=== PATIENT | male | born 1955 | race Caucasian/White ===

== ENCOUNTER 2024-02-29 02:41 | Emergency (ER) | payer MEDICARE, SELFPAY ==
[2024-02-29 02:48] VITALS: PULSE 54; O2SAT 96
[2024-02-29 02:51] VITALS: BP 190/93; PULSE 61; RESP 18; TEMP 36.5; O2SAT 97; BMI 29.6
--- NOTE | 2024-02-29 03:03 | ED_ITS ---
HPI - Back Pain/Injury General Chief Complaint: Back Pain/Injury Stated Complaint: lower back pain rt side Time Seen by Provider: 02/29/24 02:43 Source: patient Mode of arrival: Ambulatory Limitations: no limitations History of Present Illness HPI Narrative: Patient is a 61-year-old. States he was a history kidney stones. His last kidney stone was greater than 10 years ago. Is here for evaluation a couple days of right-sided flank pain. He states that the symptoms occur after he urinates. No fevers. No vomiting. He states it feels like prior stone. He went to the walk-in clinic yesterday. He was told that and potentially is muscular in origin. Has been taking anti-inflammatories without improvement. No skin changes. Related Data Previous Rx's Medication Instructions Recorded omeprazole 20 mg capsule,delayed 20 mg PO QDAY ##30 02/16/12 release hydrocodone 5 mg-acetaminophen 325 1 tab PO Q8H PRN pain #7 tabs 02/29/24 mg tablet Allergies Allergy/AdvReac Type Severity Reaction Status Date / Time lisinopril [LISINOPRIL] Allergy Unknown COUGH Verified 02/29/24 03:57 nabumetone [NABUMETONE] Allergy Unknown RASH Verified 02/29/24 03:57 Review of Systems Review of Systems ROS Unobtainable: All systems reviewed & are unremarkable except as noted in HPI and below Exam Initial Vital Signs Initial Vital Signs: Vital Signs Pulse Rate 54 L 02/29/24 02:48 Pulse Oximetry 96 02/29/24 02:48 Oxygen Delivery Method Room Air 02/29/24 02:48 Const General: cooperative, comfortable and No ill appearing [facility] Head: normal to inspection and normocephalic Resp Effort & Inspection: normal respiratory effort Cardio Rate: regular rate Back/Spine/Pelvis Back: CVA tenderness right Skin General: no rashes or lesions noted Neuro General: patient alert, patient awake and moves all extremities Course Orders Ordered: ED Orders 02/29/24 03:10 Basic Metabolic Panel Stat Complete Blood Count AUTO DIFF Stat 02/29/24 03:52 CT kidney ureter bladder (KUB) Stat Discontinued Medications Hydrocodone Bitart/Acetaminophen (Hydrocodone/Acet 5/325 Tablet) 1 tab PO NOW ONE Stop: 02/29/24 03:04 Last Admin: 02/29/24 03:14 Dose: 1 tab Documented By: Hydrocodone Bitart/Acetaminophen (Hydrocodone/Acet 5/325 Prepack) 1 bottle MISC DIRECTED ONE Stop: 02/29/24 04:47 Last Admin: 02/29/24 04:51 Dose: 1 bottle Documented By: NORY Vital Signs Vital signs: Vital Signs - 8 hr 02/29/24 02:48 02/29/24 02:51 Temperature 97.7 F Pulse Rate 54 L 61 Respiratory Rate 18 Blood Pressure 190/93 H Pulse Oximetry 96 97 Oxygen Delivery Method Room Air Room Air MDM - Back Pain/Injury Lab Data Attestation: I reviewed the patient's lab results. 02/29/24 03:10 02/29/24 03:10 Labs: Lab Results 02/29/24 Range/Units 03:10 WBC 7.3 (4.5-11.0) X10^3/uL RBC 4.77 (4.5-5.9) X10^6/uL Hgb 15.1 (13.5-17.5) g/dL Hct 42.7 (41-53) % MCV 89.4 (80-100) fL MCH 31.6 (26-34) PG MCHC 35.3 (30-36) % RDW 13.6 (11.6-14.8) % Plt Count 208 (150-400) X10^3/uL Neut % (Auto) 56.4 (50-75) % Lymph % (Auto) 30.0 (25-40) % [place] % (Auto) 8.1 (3-14) % Eos % (Auto) 4.5 H (2-4) % Baso % (Auto) 1.0 (0-2) % Neut # (Auto) 4100 (1659-1472) /uL Lymph # (Auto) 2200 (1149-0460) /uL [place] # (Auto) 600 (0-900) /uL Eos # (Auto) 300 (0-450) /uL Baso # (Auto) 100 (0-100) /uL Sodium 135 L (137-145) mmol/L Potassium 3.3 L (3.4-5.1) mmol/L Chloride 99 (98-107) mmol/L Carbon Dioxide 28 (22-32) mmol/L BUN 18 (9-20) mg/dL Creatinine 0.81 (0.66-1.25) mg/dL Estimated GFR > 60 (>60) mL/min BUN/Creatinine Ratio 22.2 H (6-22) Glucose 113 H (80-110) mg/dL Calcium 10.0 (8.4-10.2) mg/dL Urine Dip Bedside Urine Glucose Negative Bedside Urine Bilirubin - Negative Bedside Urine Ketone - Negative Urine Specific Dawson 1.005 Bedside Urine Occult Blood - Negative Bedside Urine pH 7.0 Bedside Urine Protein - Negative Bedside Urine Urobilinogen - Negative Bedside Urine Nitrite - Negative Bedside Urine Leukocytes - Negative Esterase MDM Narrative Medical decision making narrative: His labs are unremarkable. Urinalysis does not show any signs of blood. No signs of infection. Low suspicion for pyelo. We discussed obtaining a CT scan for further evaluation 1st his treating conservatively with medications. After the discussion the patient opted to have the CT scan performed. The CT scan did not show any right-sided nephro or ureteral stones. He was a punctate stone in the left. Does have a gallstone but does not have any right upper quadrant tenderness. I discussed this with the patient. No indication for antibiotics or surgical consultation. Will treat conservatively for now. He was given return precautions. He expressed understanding and agreement. Discharge Plan Departure Patient Disposition: Home Clinical Impression: Acute right flank pain Instructions: DI for Flank Pain Activity Restrictions/Additional Instructions: Recommend that you contact your primary care doctor for a follow-up. He was the pain medication as needed. Return to the emergency department for new or worsening symptoms. Prescriptions: New hydrocodone-acetaminophen 5-325 mg tablet 1 tab PO Q8H PRN (Reason: pain) Qty: 7 0RF No Action omeprazole 20 MG capsule,delayed release(DR/EC) 20 mg PO QDAY Qty: 30 5RF Referrals: Ravi Juarez MD [Primary Care Provider] - Stand Alone Forms: Patient Portal/API
[2024-02-29] MEDS: HYDROCODONE/ACET 5/325 TABLET 1 TAB PO (03:14)
[2024-02-29 03:22] LABS: Add Manual Diff / Slide Review NO; Basophils Absolute Auto 100 /uL (0-100); Eosinophils Absolute Auto 300 /uL (0-450); Eosinophils Percent Auto 4.5 % (2-4); Hematocrit 42.7 % (41-53); Hemoglobin 15.1 g/dL (13.5-17.5); Lymphocytes Absolute Auto 2200 /uL (1100-4500); Mean Corpuscular HGB Conc 35.3 % (30-36); Mean Corpuscular Hemoglobin 31.6 PG (26-34); Mean Corpuscular Volume 89.4 fL (80-100); Monocytes Absolute Auto 600 /uL (0-900); Monocytes Percent Auto 8.1 % (3-14); Neutrophils Absolute Auto 4100 /uL (1500-7000); Neutrophils Percent Auto 56.4 % (50-75); Platelet Count 208 X10^3/uL (150-400); Red Blood Cell Count 4.77 X10^6/uL (4.5-5.9); Red Cell Distribution Width 13.6 % (11.6-14.8); White Blood Cell Count 7.3 X10^3/uL (4.5-11.0)
[2024-02-29 03:36] LABS: BUN Creatinine Ratio 22.2 (6-22); Blood Urea Nitrogen 18 mg/dL (9-20); Carbon Dioxide 28 mmol/L (22-32); Chloride 99 mmol/L (98-107); Estimated Glomerular Filt Rate > 60 mL/min (>60); Glucose 113 mg/dL (80-110); HEMOLYSIS < 15 (0-50); Potassium 3.3 mmol/L (3.4-5.1); Sodium 135 mmol/L (137-145)
--- NOTE | 2024-02-29 03:52 | DI.CT.S_ITS ---
PROCEDURE: CT KIDNEY URETER BLADDER (KUB) INDICATIONS: R flank pain eval for stone TECHNIQUE: Axial sections were acquired from the lung bases to the pubic symphysis. Coronal and sagittal reformats were performed. For radiation dose reduction, the following was used: automated exposure control, adjustment of mA and/or kV according to patient size. COMPARISON: None. FINDINGS: Image quality: Diagnostic. Lower Chest: Moderate to large hiatal hernia. No pleural effusion. URINARY: Right Kidney: No stones or hydronephrosis. Low-density cyst measuring 2.9 cm. Right Ureter: No hydroureter. Left Kidney: No hydronephrosis. Nonobstructing calculus measuring 0.4 cm. Left Ureter: No hydroureter. Bladder: Normal wall thickness. No stones. ABDOMEN: Liver: Small cyst in the right lobe. A few calcified granuloma. Gallbladder: Not distended. No pericholecystic fluid. Gallstone measuring 1.8 cm. Biliary ducts: No biliary dilation. Pancreas: Fatty atrophy. Spleen: Size is within normal limits. Calcified granuloma. Adrenal Glands: No adrenal nodules. Stomach and Bowel: Moderate to large hiatal hernia. No small bowel obstruction. Diverticulosis. No diverticulitis identified. Normal appendix. Peritoneum: No abnormal intraperitoneal fluid. No free air. Ventral Wall: No hernia. Abdominal Nodes: No enlarged retroperitoneal or mesenteric lymph nodes. Vessels: Aorta and inferior vena cava are normal in size. Calcified plaque. PELVIS: Pelvic Organs: Prostatomegaly. Pelvic Nodes: Unremarkable. Miscellaneous: Question fat containing inguinal hernias. Bones: Subtle lucencies in the bilateral ilium. A few bone islands. No aggressive appearing lesion. No compression fracture. IMPRESSION: 1. No obstructing calculus. No hydronephrosis. 2. Small nonobstructing left kidney stone measuring 0.4 cm. 3. Normal appendix. No free fluid. Gallstone. Moderate to large hiatal hernia. Diverticulosis. This report is concordant with the overnight preliminary interpretation. Dictated by: Flako Hills M.D. on 02/29/2024 at 8:32 Approved by: Flako Hills M.D. on 02/29/2024 at 8:42
[2024-02-29] MEDS: HYDROCODONE/ACET 5/325 PREPACK 1 BOTTLE MISC (04:51)
[2024-02-29] MEDS: CYCLOBENZAPRINE 10 MG PREPACK 1 BOTTLE MISC (05:01)
[2024-02-29 05:04] VITALS: BP 156/75; PULSE 53; RESP 17; O2SAT 96
== END 2024-02-29 05:06 | disposition home or self-care (01) ==
PROVIDERS: Emergency Provider Emergency Medicine; Family Provider Family Medicine; PCP Family Medicine
DX: R10.9 Unspecified abdominal pain (principal); Z87.442 Personal history of urinary calculi
CPT/HCPCS: 74176; 80048; 81003; 85025; 99283; 99284

== ENCOUNTER 2024-06-19 12:02 | Day surgery (SDC) | payer MEDICARE, SELFPAY ==
[2024-05-18 07:34] VITALS: BMI 29.7
[2024-06-19] VITALS (10 sets, daily range): BP systolic 130–158; BP diastolic 69–90; PULSE 55–77; RESP 12–18; TEMP 36.2–36.6; O2SAT 96–99; BMI 29.7
--- NOTE | 2024-06-19 | PATH_ITS ---
[facility] Accession Number: [id number] No. of containers..01 Tissue . 01 Material submitted: . gallbladder - GALLBLADDER . 01 Diagnosis: GALLBLADDER, CHOLECYSTECTOMY: Cholelithiasis with mild chronic cholecystitis and focal cholesterolosis. No evidence of neoplasm. MRV 06/21/2024 1310 Local . 01 Electronically signed: . Tone Degroot MD, PhD, Pathologist NPI- [id number] . 01 Gross description: . Received in formalin with two patient identifiers and gallbladder, is an intact gallbladder, 10.2 x 3.8 x 3.5 cm. The external surface is green and unremarkable. The cystic duct margin is inked blue, and no pericystic lymph node candidate is identified. The lumen contains a single green roughened calculus, 1.7 cm in greatest dimension grossly obstructing the cystic duct. The remaining lumen contains dark green viscous bile. The mucosa is green to brown and velvety with a diffusely nodular area located in the fundus across an area measuring 4.5 x 2.5 cm. An additional nodular area is located within the neck of the gallbladder across an area measuring 2.7 x 0.7 cm. No polyps or lesions identified. The melendrez average 0.2 cm thick. School Admissions Representative sections to include the cystic duct margin and full-thickness sections with nodular areas are submitted in A1. ([id number]) /MRV 06/20/2024 1707 Local . 01 Pathologist provided ICD-10: K80.60, K81.1 . 01 CPT . 574311 Specimen Comment: A courtesy copy of this report has been sent to [facility] Performed at: [address] [id number] MD Sachin Patel MD Phone: [phone]
--- NOTE | 2024-06-19 | DI.RAD.S_ITS ---
PROCEDURE: XR CHOLANGIOGRAM OPERATIVE INDICATIONS: LAPAROSCOPIC CHOLECYSTECTOMY W/ IOC COMPARISON: [facility], CT, CT KIDNEY URETER BLADDER (KUB), 02/29/2024, 4:00. FINDINGS: Biliary ducts: The surgeon injected contrast into the biliary ducts after cannulation of the cystic duct stump. Visualized intra- and extrahepatic bile ducts are normal in caliber, without strictures. No intraluminal filling defects to suggest retained ductal stones or sludge. No evidence for iatrogenic ductal injury. Duodenum: Contrast flows promptly through the sphincter of Oddi into the duodenum, which appears normal in caliber. IMPRESSION: Intraoperative cholangiogram. Dictated by: Syeda Singh M.D. on 06/20/2024 at 12:44 Approved by: Syeda Singh M.D. on 06/20/2024 at 12:44
[2024-06-19] MEDS: LACTATED RINGERS 1,000 ML 42 ML IV ×2 (12:15→15:20)
[2024-06-19] MEDS: ACETAMINOPHEN 325 MG TABLET 975 MG PO (12:15)
--- NOTE | 2024-06-19 12:23 | P.HP_ITS ---
History of Present Illness History of Present Illness Date Patient Seen: 06/19/24 Time Patient Seen: 12:23 Chief complaint: Laparoscopic Cholecystectomy with IOC Narrative: 69-year-old white male seen in the clinic in April with chronic cholecystitis. No jaundice or pancreatitis [facility] Medical History Symptomatic cholelithiasis Hypertension Arthritis Hypertension Hiatal hernia Surgical History H/O bilateral inguinal hernia repair Social History household members: spouse Smoking Status: Never smoker Meds Home Medications and Allergies Home Medications Medication Instructions Recorded Confirmed Type omeprazole 20 mg capsule,delayed 20 mg PO QDAY ##30 02/16/12 04/30/24 Rx release alprazolam 0.25 mg tablet (Xanax) 0.25 mg PO BEDTIME PRN 04/30/24 04/30/24 History atenolol 50 mg tablet 50 mg PO DAILY 04/30/24 04/30/24 History celecoxib 200 mg capsule (Celebrex) 200 mg PO DAILY PRN 04/30/24 04/30/24 History chlorthalidone 25 mg tablet 25 mg PO DAILY 04/30/24 04/30/24 History Allergies Allergy/AdvReac Type Severity Reaction Status Date / Time lisinopril [LISINOPRIL] Allergy Unknown COUGH Verified 06/19/24 12:07 nabumetone [NABUMETONE] Allergy Unknown RASH Verified 06/19/24 12:07 Review of Systems Review of Systems ROS: Yes All systems reviewed with the patient and are negative except as otherwise documented Exam Narrative Exam Narrative: Gen: NAD, sitting comfortably in bed, appears well HEENT: Sclera are anicteric, head is normocephalic and atraumatic, trachea is midline. CV: RRR, no JVD Resp: clear to auscultation bilaterally, equal chest wall movement bilaterally Abd: soft, nontender, normoactive bowel sounds Ext: no edema, full range of motion Neuro: Cranial nerves II-XII grossly intact, no focal deficits Skin: No erythema or ecchymosis Assessment & Plan Assessment and plan (1) Symptomatic cholelithiasis: Status: Acute Assessment & Plan narrative: Risks, benefits, alternatives of laparoscopic cholecystectomy with cholangiography were explained to the patient. Risks of nonoperative management including jaundice, pancreatitis and worsening cholecystitis were all explained to the patient. Risks of surgery include bleeding, infection, bile leaks, retained stones, need for ERCP, incisional hernia, injury to related structures, failure to relieve symptoms and worsening reflux were all explained to the patient. Patient agrees to proceed with laparoscopic cholecystectomy with cholangiography Time-Based Coding :: [TOTAL MINUTES] spent with patient and on the chart (including review of chart, obtaining history, exam, reviewing outside data, placing orders, documenting exam and treatment plan, and counseling patient) on [DATE]. [employer] Document charge(s): No
[2024-06-19] MEDS: CEFAZOLIN 2 GM/100 ML PREMIX 100 ML IV (13:20)
--- NOTE | 2024-06-19 13:29 | SUR.OPER ---
Supine on padded OR bed, head on pillow, safety belt at thigh, left arm padded and tucked at side. Right arm secured on padded arm board <90 degrees abduction. Legs uncrossed. Padded footboard in place. Tape over blanket to secure lower legs.
[2024-06-19] MEDS: BUPIVACAINE 0.5% W/ EPI (PF) 30 ML VIAL INJ (13:34)
[2024-06-19] MEDS: iopamidoL 30 ML VIAL INJ (13:35)
--- NOTE | 2024-06-19 14:10 | PM.OP.1 ---
Operative Date/Time/Diagnoses Date of procedure: 06/19/24 Time of procedure: 14:11 Pre-op diagnosis: Symptomatic cholelithiasis, chronic cholecystitis Post-op diagnosis: same Procedure & Clinicians Procedure: Laparoscopic cholecystectomy with cholangiography Same procedure as scheduled: Yes Indications: Symptomatic cholelithiasis Surgeon: Jorge L Mcgregor Click Yes if Unassisted: Yes Anesthesia Type: General Operative Notes Findings: Normal cholangiography Closure Type: primary Specimen(s): other (Gallbladder and contents) Estimated Blood Loss (mL): 15 Procedure in detail: Consent was obtained. Patient was brought into the operating room suite. Patient was placed in the supine position with the arms out. General anesthesia was induced. Time-out was performed. The abdomen was prepped and draped in the usual fashion. Total of 30 mL of 0.5% Marcaine were infiltrated in all trocar sites. 5 mm optical trocar was placed in the left upper quadrant. Pneumoperitoneum was achieved. The abdomen was inspected. Abnormalities noted included adhesions to the gallbladder. 11 mm trocar placed in the umbilicus. Two additional 5 mm trocars were placed in the right upper quadrant. The gallbladder was grasped, retracted laterally and cephalad. The medial and lateral attachments of the gallbladder were opened revealing a critical view of the single cystic duct and single cystic artery. The artery was doubly clipped and divided. The duct was clipped at the junction of the infundibulum. A cystic ductotomy was made through which a cholangiogram was performed. Cholangiogram showed prompt emptying into the duodenal with bilateral intrahepatic ductal filling and no evidence of strictures or stones. Thus completed the cholangiography and the catheter was removed. Three clips were then applied to the cystic duct stump. Bovie electrocautery was used to remove the gallbladder from the liver bed. Hemostasis was achieved. The gallbladder was placed in an endo-pouch and brought out through the umbilical trocar. The umbilical trocar was closed with an 0 Vicryl on a Flavio-Melo suture Passer. Pneumoperitoneum was relieved. Skin was closed with 4-0 Monocryl and Dermabond. Patient tolerated procedure well was transferred to PACU in stable condition for anticipated same-day discharge. Complications: none Post-operative Condition: stable Disposition: PACU Plan for aftercare: Home
[2024-06-19] MEDS: ONDANSETRON 4 MG/2 ML INJ IV (14:25)
[2024-06-19] MEDS: hydrOXYzine 50 MG/ML INJ 25 MG IM (14:32)
[2024-06-19] MEDS: METOCLOPRAMIDE 10 MG/2 ML INJ IV (14:57)
[2024-06-19] MEDS: diphenhydrAMINE 50 MG/ML VIAL 12.5 MG IV (15:01)
[2024-06-19] MEDS: OXYCODONE IR 5 MG TABLET PO (15:01)
[2024-06-19] MEDS: TIZANIDINE 4 MG TABLET 2 MG PO (15:01)
== END 2024-06-19 16:10 | disposition home or self-care (01) ==
PROVIDERS: Family Provider Family Medicine; PCP Internal Medicine; Referring Provider Surgery; Visit Provider Surgery
PROC: 0FT44ZZ Resection of Gallbladder, Percutaneous Endoscopic Approach (ICD-10-PCS; CPT 47563; principal; 2024-06-19 13:15)
DX: K80.10 Calculus of gallbladder with chronic cholecystitis without obstruction (principal)
CPT/HCPCS: 47563; 74300; J0690; J1100; J1200; J1885; J2405; J2704; J2765; J3010; J3410; Q9967

== ENCOUNTER → 2024-10-04 18:33 | Outpatient (CLI) | payer MEDICARE, SELFPAY ==
--- NOTE | 2024-10-04 18:36 | DI.MRI.S_ITS ---
PROCEDURE: MR SHOULDER LT WO CON INDICATIONS: PAIN IN SHOULDERS-BILATERAL TECHNIQUE: Noncontrast oblique coronal T2 fast spin echo with fat saturation, oblique sagittal T1 spin echo and T2 fast spin echo with fat saturation, axial T1 spin echo and T2 fast spin echo with fat saturation through the shoulder. COMPARISON: [facility], MR, MR SHOULDER RT WO CON, 10/04/2024, 18:48. FINDINGS: Image quality: Excellent. There is no evidence of a bony fracture or contusion. There is a moderate glenohumeral joint effusion. There is advanced degenerative changes involving the shoulder with high-riding humeral head. There is narrowing of the acromial humeral distance with impingement. There are full-thickness tears involving the supraspinatus tendon and infraspinatus tendons. The infraspinatus and supraspinatus tendon are old off the humeral head with a bandlike appearance within the joint effusion. Mild muscle atrophy. The subscapularis tendon demonstrates tendinopathy without evidence of a complete tear. Teres minor is intact. The biceps tendon is small and is within the groove with surrounding fluid. There is fraying of the labrum. IMPRESSION: Degenerate changes involving the glenohumeral joint with high-riding humeral head resulting in impingement with full-thickness tears involving the rotator cuff. Subscapularis tendinopathy. Biceps tenosynovitis. Dictated by: Georgina Garcia M.D. on 10/05/2024 at 10:00 Approved by: Georgina Garcia M.D. on 10/05/2024 at 10:14
--- NOTE | 2024-10-04 18:45 | DI.MRI.S_ITS ---
PROCEDURE: MR SHOULDER RT WO CON INDICATIONS: BILATERAL SHOULDER PAIN TECHNIQUE: Noncontrast oblique coronal T2 fast spin echo with fat saturation, oblique sagittal T1 spin echo and T2 fast spin echo with fat saturation, axial T1 spin echo and T2 fast spin echo with fat saturation through the shoulder. COMPARISON: None. FINDINGS: Image quality: Excellent. There are advanced degenerative changes involving the acromioclavicular and glenohumeral joint. Humeral head is high riding with narrowing of the acromial humeral head distance resulting in impingement. There are full-thickness tears involving the supraspinatus tendon with some remaining fibers. The infraspinatus is completely torn with retraction and muscle atrophy. Subscapularis appears to be intact. The teres minor is unremarkable. Glenohumeral joint demonstrates loss of the articular cartilage and fraying of the labrum. Biceps tendon is small and is most likely at least partially torn. There is a glenohumeral joint effusion. Subchondral cyst is present involving the humeral head. No acute fractures. IMPRESSION: Advanced degenerative changes involving the right shoulder with impingement resulting in full-thickness rotator cuff tears and moderate muscle atrophy. Dictated by: Georgina Garcia M.D. on 10/05/2024 at 9:41 Approved by: Georgina Garcia M.D. on 10/05/2024 at 10:00
== END ==
PROVIDERS: Family Provider Family Medicine; PCP Internal Medicine; Referring Provider Internal Medicine; Visit Provider Internal Medicine
DX: M75.122 Complete rotator cuff tear or rupture of left shoulder, not specified as traumatic (principal); M65.912 Unspecified synovitis and tenosynovitis, left shoulder; M75.121 Complete rotator cuff tear or rupture of right shoulder, not specified as traumatic; M75.41 Impingement syndrome of right shoulder; M25.50 Pain in unspecified joint
CPT/HCPCS: 73221

== ENCOUNTER 2025-01-11 16:32 | Emergency (ER) | payer MEDICARE, SELFPAY ==
[2025-01-11 16:37] VITALS: BP 144/70; PULSE 45; RESP 16; TEMP 36.6; O2SAT 98; BMI 27.8
[2025-01-11 17:54] LABS: Add Manual Diff / Slide Review NO; Hematocrit 42.8 % (41-53); Hemoglobin 15.0 g/dL (13.5-17.5); Lymphocytes Absolute Auto 1800 /uL (1100-4500); Mean Corpuscular HGB Conc 35.1 % (30-36); Mean Corpuscular Hemoglobin 31.6 PG (26-34); Mean Corpuscular Volume 89.9 fL (80-100); Platelet Count 184 X10^3/uL (150-400)
--- NOTE | 2025-01-11 18:01 | ED.MALEGU ---
HPI - Male Genitourinary <TRIP Sarah - Last Filed: 01/11/25 19:27> General Chief complaint: Urogenital-Male Stated complaint: back pain Time Seen by Provider: 01/11/25 16:56 Source: patient and family Mode of arrival: Ambulatory History of Present Illness HPI Narrative: 69-year-old male, never smoker with history of kidney stones, presents to the emergency department with worsening right flank pain since this morning. Patient reports that this feels identical to the last time he had a kidney stone. Patient denies any UTI like symptoms. Related Data Home Medications ?Medication ?Instructions ?Recorded ?Confirmed alprazolam 0.25 mg tablet (Xanax) 0.25 mg PO BEDTIME 04/30/24 01/03/25 atenolol 50 mg tablet 50 mg PO DAILY 04/30/24 01/03/25 celecoxib 200 mg capsule (Celebrex) 200 mg PO DAILY 04/30/24 01/03/25 chlorthalidone 25 mg tablet 25 mg PO DAILY 04/30/24 01/03/25 Previous Rx's ?Medication ?Instructions ?Recorded omeprazole 20 mg capsule,delayed 20 mg PO QDAY ##30 02/16/12 release tizanidine 2 mg tablet 2 mg PO Q8H PRN muscle spasticity 06/19/24 or pain #90 tabs meloxicam 15 mg tablet 15 mg PO DAILY #90 tabs 01/03/25 Allergies Allergy/AdvReac Type Severity Reaction Status Date / Time lisinopril (LISINOPRIL) Allergy Unknown COUGH Verified 01/11/25 16:37 nabumetone (NABUMETONE) Allergy Unknown RASH Verified 01/11/25 16:37 Review of Systems <TRIP Sarah - Last Filed: 01/11/25 19:27> Review of Systems Narrative: Narrative: See HPI. GENERAL: Denies chills, fatigue, fever, sweats. HEENT: Denies sinus pain, ear pain, sore throat, difficulty swallowing, dizziness. RESPIRATORY: Denies dyspnea, cough, wheezing, sputum. CARDIOVASCULAR: Denies chest pain, palpitations, edema. GASTROINTESTINAL: Denies nausea, vomiting, abdominal pain, diarrhea, constipation. : Denies dysuria, frequency, incontinence, hematuria, urinary retention. Endorses right flank pain. MSK: Denies weakness, joint pain, or bony pain. SKIN: Denies rash, skin lesions, or pruritis. NEUROLOGIC: Denies weakness, dizziness, headache, numbness, confusion. Patient History <TRIP Sarah - Last Filed: 01/11/25 19:27> Medical History Symptomatic cholelithiasis Hypertension Arthritis Hypertension Hiatal hernia Surgical History H/O bilateral inguinal hernia repair Social History household members: spouse Smoking Status: Never smoker Smoking Status: Never smoker Exam <TRIP Sarah - Last Filed: 01/11/25 19:27> Narrative Exam Narrative: Exam Narrative: GENERAL: This is a well-nourished, well-developed patient, in no acute distress. HEAD: Atraumatic. Normocephalic. EYES: Pupils equal round and reactive. Extraocular motions intact. No scleral icterus, injection or drainage. ENT: Nose without bleeding, purulent drainage. Airway patent. NECK: Trachea midline. No JVD or lymphadenopathy. Nontender. CARDIOVASCULAR: Regular rate and rhythm without murmurs, peripheral pulses intact, cap refill <2 sec. RESPIRATORY: Breath sounds equal and clear bilaterally. No wheezes, rales, or rhonchi. No cough. No increased respiratory effort. No accessory muscle use. GASTROINTESTINAL: Abdomen soft, non-tender, nondistended without guarding or rebound. No suprapubic pain. Right CVA tenderness. MSK: Moves all extremities. Normal range of motion, no clubbing or edema. Neurovascularly intact. NEURO: A&O x 3. SKIN: Warm, dry, no rashes or lesions noted. Initial Vital Signs Initial Vital Signs: Vital Signs Temperature 97.8 F 01/11/25 16:37 Pulse Rate 45 L 01/11/25 16:37 Respiratory Rate 16 01/11/25 16:37 Blood Pressure 144/70 H 01/11/25 16:37 Pulse Oximetry 98 01/11/25 16:37 Oxygen Delivery Method Room Air 01/11/25 16:37 Reviewed <Korin Hernández DO - Last Filed: 01/12/25 04:47> Initial Vital Signs Initial Vital Signs: Vital Signs Temperature 97.8 F 01/11/25 16:37 Pulse Rate 45 L 01/11/25 16:37 Respiratory Rate 16 01/11/25 16:37 Blood Pressure 144/70 H 01/11/25 16:37 Pulse Oximetry 98 01/11/25 16:37 Oxygen Delivery Method Room Air 01/11/25 16:37 Course <TRIP Sarah - Last Filed: 01/11/25 19:27> Orders Ordered: Discontinued Medications Ketorolac Tromethamine (Ketorolac 30 Mg/Ml Vial) 30 mg IV NOW ONE Stop: 01/11/25 18:09 Last Admin: 01/11/25 18:17 Dose: 30 mg Documented By: GRACIA Ondansetron HCl (Ondansetron 4 Mg/2 Ml Inj) 4 mg IV NOW PRN PRN Reason: Nausea And Vomiting Ondansetron HCl (Ondansetron 4 Mg Odt) 4 mg PO NOW PRN PRN Reason: Nausea And Vomiting Vital Signs Vital signs: Vital Signs - 8 hr 01/11/25 16:37 Temperature 97.8 F Pulse Rate 45 L Respiratory Rate 16 Blood Pressure 144/70 H Pulse Oximetry 98 Oxygen Delivery Method Room Air <Korin Hernández DO - Last Filed: 01/12/25 04:47> Orders Ordered: Discontinued Medications Ketorolac Tromethamine (Ketorolac 30 Mg/Ml Vial) 30 mg IV NOW ONE Stop: 01/11/25 18:09 Last Admin: 01/11/25 18:17 Dose: 30 mg Documented By: GRACIA Ondansetron HCl (Ondansetron 4 Mg/2 Ml Inj) 4 mg IV NOW PRN PRN Reason: Nausea And Vomiting Ondansetron HCl (Ondansetron 4 Mg Odt) 4 mg PO NOW PRN PRN Reason: Nausea And Vomiting Vital Signs Vital signs: Vital Signs - 8 hr 01/11/25 16:37 Temperature 97.8 F Pulse Rate 45 L Respiratory Rate 16 Blood Pressure 144/70 H Pulse Oximetry 98 Oxygen Delivery Method Room Air MDM - Male Genitourinary <TRIP Sarah - Last Filed: 01/11/25 19:27> Differential Diagnosis Differential diagnosis: Likely other (Kidney stone) Lab Data 01/11/25 17:46 01/11/25 17:46 Labs: Lab Results 01/11/25 Range/Units 17:46 WBC 6.0 (4.5-11.0) X10^3/uL RBC 4.76 (4.5-5.9) X10^6/uL Hgb 15.0 (13.5-17.5) g/dL Hct 42.8 (41-53) % MCV 89.9 (80-100) fL MCH 31.6 (26-34) PG MCHC 35.1 (30-36) % RDW 13.5 (11.6-14.8) % Plt Count 184 (150-400) X10^3/uL Neut % (Auto) 54.6 (50-75) % Lymph % (Auto) 30.2 (25-40) % [place] % (Auto) 8.5 (3-14) % Eos % (Auto) 5.9 H (2-4) % Baso % (Auto) 0.8 (0-2) % Neut # (Auto) 3300 (0468-4470) /uL Lymph # (Auto) 1800 (2367-0668) /uL [place] # (Auto) 500 (0-900) /uL Eos # (Auto) 400 (0-450) /uL Baso # (Auto) 0 (0-100) /uL Sodium 139 (137-145) mmol/L Potassium 3.2 L (3.4-5.1) mmol/L Chloride 102 (98-107) mmol/L Carbon Dioxide 31 (22-32) mmol/L BUN 22 H (9-20) mg/dL Creatinine 0.80 (0.66-1.25) mg/dL Estimated GFR > 60 (>60) mL/min BUN/Creatinine Ratio 27.5 H (6-22) Glucose 95 (70-99) mg/dL Calcium 9.8 (8.4-10.2) mg/dL Total Bilirubin 1.0 (0.2-1.3) mg/dL AST 38 (17-59) IU/L ALT 25 (<50) IU/L Alkaline Phosphatase 52 (38-126) U/L Total Protein 7.5 (6.3-8.2) g/dL Albumin 4.5 (3.5-5.0) g/dL Globulin 3.0 (1.7-4.1) g/dL Albumin/Globulin Ratio 1.5 (1.0-2.8) Lipase 28 (23-300) U/L Urine Dip Bedside Urine Glucose Negative Bedside Urine Bilirubin - Negative Bedside Urine Ketone - Negative Urine Specific [place] 1.005 Bedside Urine Occult Blood - Negative Bedside Urine pH 7.0 Bedside Urine Protein - Negative Bedside Urine Urobilinogen - Negative Bedside Urine Nitrite - Negative Bedside Urine Leukocytes - Negative Esterase Imaging Data CT scan - abdomen/pelvis: Radiologist's Impression: [address] [address] [address] Scan Report Signed Patient: Yousif Fletcher MR#: [id number] : 1955 Acct:[id number] Age/Sex: 69 / M Date of Service: 01/11/25 Loc: ED Accession Number: [id number] Procedure: CT abdomen pelvis w con Ordering Provider: Adiel Anderson PROCEDURE: CT ABDOMEN PELVIS W CON INDICATIONS: Right flank pain TECHNIQUE: After the administration of intravenous contrast, axial sections acquired from the lung bases to the pubic symphysis. Coronal and sagittal reformats were performed. For radiation dose reduction, the following was used: automated exposure control, adjustment of mA and/or kV according to patient size. COMPARISON: [facility], CT, CT KIDNEY URETER BLADDER (KUB), 02/29/2024, 4:00. FINDINGS: Image quality: Diagnostic. Lower Chest: Mild bibasilar atelectasis. Large hiatal hernia. Heart size is normal. Coronary atherosclerotic vascular calcifications are noted. ABDOMEN: Liver: No solid mass. There is diffuse hypoattenuation of the liver parenchyma relative to the spleen compatible with hepatic steatosis. Stable hepatic hypodensity in the right hepatic lobe adjacent to the gallbladder fossa compatible with a cyst or hemangioma. Gallbladder: Surgically absent. Biliary ducts: No biliary dilation. Pancreas: No ductal dilation. Spleen: Size is within normal limits. Adrenal Glands: No adrenal nodules. Kidneys and Ureters: No hydronephrosis. No solid mass. No complex renal cystic lesion which requires follow up. Bilateral ureters are normal in course and caliber. Stomach and Bowel: Normal colonic caliber, without significant wall thickening. Scattered colonic diverticula without acute inflammation. Normal appendix. No evidence for small bowel obstruction or associated inflammatory changes. Peritoneum: No abnormal intraperitoneal fluid. No free air. Ventral Wall: No significant ventral hernia. Abdominal Nodes: No retroperitoneal or mesenteric adenopathy by size criteria. Vessels: Aorta and inferior vena cava are normal in size. PELVIS: Pelvic Organs: Mild prostatomegaly. Bladder: No bladder wall thickening, accounting for underdistention. Pelvic Nodes: No enlarged lymph nodes. Miscellaneous: Fat containing bilateral inguinal hernias without acute inflammation. Bones: No aggressive osseous abnormality. Visualized osseous structures appear intact without acute fracture or focal destructive lesion. No acute compression fractures of the imaged spine. IMPRESSION: CT abdomen and pelvis without acute abnormalities to explain patient's symptoms. No evidence for obstructive uropathy. No acute inflammatory changes identified in the small bowel or colon. No evidence for small bowel obstruction. Visualized appendix appears within normal limits. Hepatic steatosis. Status post cholecystectomy. Other chronic/non-acute findings as above. Dictated by: James Xie M.D. on 01/11/2025 at 19:01 Approved by: James Xie M.D. on 01/11/2025 at 19:07 [facility] Narrative Medical decision making narrative: 69-year-old male with right flank pain. Clinical findings were suggestive of a kidney stone. Baseline labs obtained and were all non concerning. Point of care urine dip was not consistent with UTI. Toradol given IV. Abdominal/pelvis CT was negative for kidney stones. Suspect this may be musculoskeletal in nature and recommended he forego any extraneous activity, take the recently prescribed meloxicam as prescribed, cool or warm compresses to the affected site, and gentle range of motion stretching exercises. Discussed plan of care and return precautions with patient, who verbalized understanding and was agreeable with course of action. <Korin Hernández, DO - Last Filed: 01/12/25 04:47> Lab Data Labs: Lab Results 01/11/25 Range/Units 17:46 WBC 6.0 (4.5-11.0) X10^3/uL RBC 4.76 (4.5-5.9) X10^6/uL Hgb 15.0 (13.5-17.5) g/dL Hct 42.8 (41-53) % MCV 89.9 (80-100) fL MCH 31.6 (26-34) PG MCHC 35.1 (30-36) % RDW 13.5 (11.6-14.8) % Plt Count 184 (150-400) X10^3/uL Neut % (Auto) 54.6 (50-75) % Lymph % (Auto) 30.2 (25-40) % [place] % (Auto) 8.5 (3-14) % Eos % (Auto) 5.9 H (2-4) % Baso % (Auto) 0.8 (0-2) % Neut # (Auto) 3300 (5026-9933) /uL Lymph # (Auto) 1800 (9893-2870) /uL [place] # (Auto) 500 (0-900) /uL Eos # (Auto) 400 (0-450) /uL Baso # (Auto) 0 (0-100) /uL Sodium 139 (137-145) mmol/L Potassium 3.2 L (3.4-5.1) mmol/L Chloride 102 (98-107) mmol/L Carbon Dioxide 31 (22-32) mmol/L BUN 22 H (9-20) mg/dL Creatinine 0.80 (0.66-1.25) mg/dL Estimated GFR > 60 (>60) mL/min BUN/Creatinine Ratio 27.5 H (6-22) Glucose 95 (70-99) mg/dL Calcium 9.8 (8.4-10.2) mg/dL Total Bilirubin 1.0 (0.2-1.3) mg/dL AST 38 (17-59) IU/L ALT 25 (<50) IU/L Alkaline Phosphatase 52 (38-126) U/L Total Protein 7.5 (6.3-8.2) g/dL Albumin 4.5 (3.5-5.0) g/dL Globulin 3.0 (1.7-4.1) g/dL Albumin/Globulin Ratio 1.5 (1.0-2.8) Lipase 28 (23-300) U/L Urine Dip Bedside Urine Glucose Negative Bedside Urine Bilirubin - Negative Bedside Urine Ketone - Negative Urine Specific [place] 1.005 Bedside Urine Occult Blood - Negative Bedside Urine pH 7.0 Bedside Urine Protein - Negative Bedside Urine Urobilinogen - Negative Bedside Urine Nitrite - Negative Bedside Urine Leukocytes - Negative Esterase Discharge Plan Departure Patient Disposition: Home Clinical Impression: Acute right flank pain Instructions: DI for Kidney Stones Activity Restrictions/Additional Instructions: *You have been diagnosed with right flank pain. Your CT was encouraging and no red flag symptoms noted. No identification of what is causing your discomfort. As we discussed, I question whether or not this may be musculoskeletal in nature. For this, I recommend supportive care to include rest, hot or cold compresses to the affected site, gentle range of motion stretching exercises and your recently prescribed meloxicam. For any worsening symptoms, please feel free to return to the emergency department. Otherwise, follow up with your family doctor as needed. *What to do: *Please continue to take your regular medications as directed. [ ] New medication prescriptions sent to your pharmacy: [ ] [ ] New medication written as a paper prescription [x ] No new medications given *Please follow up with your primary care provider in 2-3 days, call for an appointment. Let them know you were seen in the Emergency Department and that we ask that you be seen in follow up. We will electronically transmit a record of today's note if your PCP is in our system *If you do not have a primary care provider please contact the [facility] Resource line at [phone]. They will ask some questions about your medical history and help get you set up with a doctor in the community. ? Return to ER if you should have any new, worsening or concerning symptoms, such as worsening pain, severe headache, confusion, chest pain, difficulty breathing, fever greater than 101 F, shaking chills, persistent vomiting to the point that you cannot drink fluids, or other new or worsening symptoms. Prescriptions: No Action omeprazole 20 MG capsule,delayed release(DR/EC) 20 mg PO QDAY Qty: 30 5RF atenolol 50 mg tablet 50 mg PO DAILY celecoxib [Celebrex] 200 mg capsule 200 mg PO DAILY chlorthalidone 25 mg tablet 25 mg PO DAILY alprazolam [Xanax] 0.25 mg tablet 0.25 mg PO BEDTIME tizanidine 2 mg tablet 2 mg PO Q8H PRN (Reason: muscle spasticity or pain) Qty: 90 0RF meloxicam 15 mg tablet 15 mg PO DAILY Qty: 90 0RF Referrals: Laura Cevallos MD [Primary Care Provider, Internal Medicine] Stand Alone Forms: Patient Portal/API ED Sign-out <Korin Hernández, - Last Filed: 01/12/25 04:47> Cosign ED Attending Noryature Attestation: I was immediately available in the department for consultation.
--- NOTE | 2025-01-11 18:07 | DI.CT.S_ITS ---
PROCEDURE: CT ABDOMEN PELVIS W CON INDICATIONS: Right flank pain TECHNIQUE: After the administration of intravenous contrast, axial sections acquired from the lung bases to the pubic symphysis. Coronal and sagittal reformats were performed. For radiation dose reduction, the following was used: automated exposure control, adjustment of mA and/or kV according to patient size. COMPARISON: [facility], CT, CT KIDNEY URETER BLADDER (KUB), 02/29/2024, 4:00. FINDINGS: Image quality: Diagnostic. Lower Chest: Mild bibasilar atelectasis. Large hiatal hernia. Heart size is normal. Coronary atherosclerotic vascular calcifications are noted. ABDOMEN: Liver: No solid mass. There is diffuse hypoattenuation of the liver parenchyma relative to the spleen compatible with hepatic steatosis. Stable hepatic hypodensity in the right hepatic lobe adjacent to the gallbladder fossa compatible with a cyst or hemangioma. Gallbladder: Surgically absent. Biliary ducts: No biliary dilation. Pancreas: No ductal dilation. Spleen: Size is within normal limits. Adrenal Glands: No adrenal nodules. Kidneys and Ureters: No hydronephrosis. No solid mass. No complex renal cystic lesion which requires follow up. Bilateral ureters are normal in course and caliber. Stomach and Bowel: Normal colonic caliber, without significant wall thickening. Scattered colonic diverticula without acute inflammation. Normal appendix. No evidence for small bowel obstruction or associated inflammatory changes. Peritoneum: No abnormal intraperitoneal fluid. No free air. Ventral Wall: No significant ventral hernia. Abdominal Nodes: No retroperitoneal or mesenteric adenopathy by size criteria. Vessels: Aorta and inferior vena cava are normal in size. PELVIS: Pelvic Organs: Mild prostatomegaly. Bladder: No bladder wall thickening, accounting for underdistention. Pelvic Nodes: No enlarged lymph nodes. Miscellaneous: Fat containing bilateral inguinal hernias without acute inflammation. Bones: No aggressive osseous abnormality. Visualized osseous structures appear intact without acute fracture or focal destructive lesion. No acute compression fractures of the imaged spine. IMPRESSION: CT abdomen and pelvis without acute abnormalities to explain patient's symptoms. No evidence for obstructive uropathy. No acute inflammatory changes identified in the small bowel or colon. No evidence for small bowel obstruction. Visualized appendix appears within normal limits. Hepatic steatosis. Status post cholecystectomy. Other chronic/non-acute findings as above. Dictated by: James Xie M.D. on 01/11/2025 at 19:01 Approved by: James Xie M.D. on 01/11/2025 at 19:07
[2025-01-11 18:13] LABS: Alanine Aminotransferase 25 IU/L (<50); Albumin 4.5 g/dL (3.5-5.0); Albumin Globulin Ratio 1.5 (1.0-2.8); Alkaline Phosphatase 52 U/L (38-126); Blood Urea Nitrogen 22 mg/dL (9-20); Calcium 9.8 mg/dL (8.4-10.2); Carbon Dioxide 31 mmol/L (22-32); Chloride 102 mmol/L (98-107); Estimated Glomerular Filt Rate > 60 mL/min (>60); Globulin 3.0 g/dL (1.7-4.1); Glucose 95 mg/dL (70-99); HEMOLYSIS 20 (0-50); Lipase 28 U/L (23-300); Potassium 3.2 mmol/L (3.4-5.1); Sodium 139 mmol/L (137-145); Total Protein 7.5 g/dL (6.3-8.2)
[2025-01-11] MEDS: KETOROLAC 30 MG/ML VIAL IV (18:17)
[2025-01-11 19:35] VITALS: BP 173/89; PULSE 50; RESP 17; O2SAT 97
== END 2025-01-11 19:41 | disposition home or self-care (01) ==
PROVIDERS: Family Medicine; Emergency Provider Registered Nurse; PCP Internal Medicine
DX: R10.9 Unspecified abdominal pain (principal); Z87.442 Personal history of urinary calculi
CPT/HCPCS: 36415; 74177; 80053; 81003; 83690; 85025; 96374; 99284; J1885; Q9967

== ENCOUNTER 2025-01-13 11:48 | Emergency (ER) | payer MEDICARE, SELFPAY ==
[2025-01-13 11:58] VITALS: BP 160/82; PULSE 55; RESP 14; TEMP 36.6; O2SAT 98; BMI 27.4
[2025-01-13 12:14] LABS: Add Manual Diff / Slide Review NO; Hematocrit 42.3 % (41-53); Hemoglobin 15.2 g/dL (13.5-17.5); Lymphocytes Absolute Auto 1400 /uL (1100-4500); Mean Corpuscular HGB Conc 35.9 % (30-36); Mean Corpuscular Hemoglobin 32.0 PG (26-34); Mean Corpuscular Volume 89.1 fL (80-100); Platelet Count 176 X10^3/uL (150-400)
[2025-01-13 12:26] LABS: Alanine Aminotransferase 24 IU/L (<50); Albumin 4.5 g/dL (3.5-5.0); Albumin Globulin Ratio 1.6 (1.0-2.8); Alkaline Phosphatase 55 U/L (38-126); Blood Urea Nitrogen 23 mg/dL (9-20); Calcium 9.6 mg/dL (8.4-10.2); Carbon Dioxide 28 mmol/L (22-32); Chloride 102 mmol/L (98-107); Estimated Glomerular Filt Rate > 60 mL/min (>60); Globulin 2.9 g/dL (1.7-4.1); Glucose 119 mg/dL (70-99); HEMOLYSIS 16 (0-50); Lipase 29 U/L (23-300); Potassium 3.3 mmol/L (3.4-5.1); Sodium 139 mmol/L (137-145); Total Protein 7.4 g/dL (6.3-8.2)
--- NOTE | 2025-01-13 13:31 | ED.ABDPAIN ---
HPI - Abdominal Pain General Chief Complaint: Abdominal Pain Stated Complaint: severe pain, rt lower back pain Time Seen by Provider: 01/13/25 13:30 Source: patient Mode of arrival: Family Vehicle History of Present Illness HPI narrative: Patient is a 69-year-old male history of cholecystectomy presenting today with ongoing right sided pain. He was seen evaluated here 2 days ago he had blood work and a CT with contrast which did not show any abnormality. He continues to have some epigastric and right upper quadrant pain. It was noted that he had a large hiatal hernia. Patient has no chest pain no nausea or vomiting. He reports that if he bends his leg and turns on his side it helps alleviate his pain. It is almost reproducible he can palpate it. He admits that he was trying to move something heavy before the pain started. He did not take any Tylenol or ibuprofen for the pain. He has tried heating and ice. Pain just seems to come and go reports that it is more like a spasm. It is quite severe and intense. He continues to eat and drink normally no problems. Related Data Home Medications ?Medication ?Instructions ?Recorded ?Confirmed alprazolam 0.25 mg tablet (Xanax) 0.25 mg PO BEDTIME 04/30/24 01/03/25 atenolol 50 mg tablet 50 mg PO DAILY 04/30/24 01/03/25 celecoxib 200 mg capsule (Celebrex) 200 mg PO DAILY 04/30/24 01/03/25 chlorthalidone 25 mg tablet 25 mg PO DAILY 04/30/24 01/03/25 Previous Rx's ?Medication ?Instructions ?Recorded omeprazole 20 mg capsule,delayed 20 mg PO QDAY ##30 02/16/12 release tizanidine 2 mg tablet 2 mg PO Q8H PRN muscle spasticity 06/19/24 or pain #90 tabs meloxicam 15 mg tablet 15 mg PO DAILY #90 tabs 01/03/25 cyclobenzaprine 5 mg tablet 5 mg PO TID PRN muscle spasm #10 01/13/25 tabs Allergies Allergy/AdvReac Type Severity Reaction Status Date / Time lisinopril (LISINOPRIL) Allergy Unknown COUGH Verified 01/13/25 11:58 nabumetone (NABUMETONE) Allergy Unknown RASH Verified 01/13/25 11:58 Patient History Medical History Symptomatic cholelithiasis Hypertension Arthritis Hypertension Hiatal hernia Surgical History H/O bilateral inguinal hernia repair Social History household members: spouse Smoking Status: Never smoker Smoking Status: Never smoker Exam Initial Vital Signs Initial Vital Signs: Vital Signs Temperature 97.8 F 01/13/25 11:58 Pulse Rate 55 L 01/13/25 11:58 Respiratory Rate 14 01/13/25 11:58 Blood Pressure 160/82 H 01/13/25 11:58 Pulse Oximetry 98 01/13/25 11:58 Oxygen Delivery Method Room Air 01/13/25 11:58 GENERAL: Alert pleasant well-appearing 61-year-old male and in no acute distress. HEENT: Head atraumatic,EOMI, pupils reactive, face symmetric, moist mucous membranes CARDIOVASCULAR: Regular rate and rhythm without murmurs, rubs or gallops. RESPIRATORY: Breath sounds equal bilaterally, no wheezes rales or rhonchi. ABDOMEN: Soft, mild epigastric pain minimal right upper quadrant pain negative Rousseau's : No CVA tenderness EXTREMITIES: Normal range of motion, no clubbing or edema. Neurovascularly intact NEUROLOGICAL: Alert and oriented x4.Normal gait and speech. Cranial nerves II through XII grossly intact. SKIN: Warm, dry, no laceration, no petechiae, no rashes or lesions. Course Orders Ordered: Discontinued Medications Ondansetron HCl (Ondansetron 4 Mg/2 Ml Inj) 4 mg IV NOW PRN PRN Reason: Nausea And Vomiting Ondansetron HCl (Ondansetron 4 Mg Odt) 4 mg PO NOW PRN PRN Reason: Nausea And Vomiting Vital Signs Vital signs: Vital Signs - 8 hr 01/13/25 11:58 Temperature 97.8 F Pulse Rate 55 L Respiratory Rate 14 Blood Pressure 160/82 H Pulse Oximetry 98 Oxygen Delivery Method Room Air MDM - Abdominal Pain Lab Data 01/13/25 12:00 01/13/25 12:00 Labs: Lab Results 01/13/25 Range/Units 12:00 WBC 5.6 (4.5-11.0) X10^3/uL RBC 4.75 (4.5-5.9) X10^6/uL Hgb 15.2 (13.5-17.5) g/dL Hct 42.3 (41-53) % MCV 89.1 (80-100) fL MCH 32.0 (26-34) PG MCHC 35.9 (30-36) % RDW 13.7 (11.6-14.8) % Plt Count 176 (150-400) X10^3/uL Neut % (Auto) 62.1 (50-75) % Lymph % (Auto) 25.4 (25-40) % [place] % (Auto) 6.7 (3-14) % Eos % (Auto) 5.1 H (2-4) % Baso % (Auto) 0.7 (0-2) % Neut # (Auto) 3500 (8425-3026) /uL Lymph # (Auto) 1400 (7112-7859) /uL [place] # (Auto) 400 (0-900) /uL Eos # (Auto) 300 (0-450) /uL Baso # (Auto) 0 (0-100) /uL Sodium 139 (137-145) mmol/L Potassium 3.3 L (3.4-5.1) mmol/L Chloride 102 (98-107) mmol/L Carbon Dioxide 28 (22-32) mmol/L BUN 23 H (9-20) mg/dL Creatinine 0.82 (0.66-1.25) mg/dL Estimated GFR > 60 (>60) mL/min BUN/Creatinine Ratio 28.0 H (6-22) Glucose 119 H (70-99) mg/dL Calcium 9.6 (8.4-10.2) mg/dL Total Bilirubin 1.0 (0.2-1.3) mg/dL AST 29 (17-59) IU/L ALT 24 (<50) IU/L Alkaline Phosphatase 55 (38-126) U/L Total Protein 7.4 (6.3-8.2) g/dL Albumin 4.5 (3.5-5.0) g/dL Globulin 2.9 (1.7-4.1) g/dL Albumin/Globulin Ratio 1.6 (1.0-2.8) Lipase 29 (23-300) U/L Point of care testing: Urine Dip Bedside Urine Glucose Negative Bedside Urine Bilirubin - Negative Bedside Urine Ketone - Negative Urine Specific [place] 1.020 Bedside Urine Occult Blood - Negative Bedside Urine pH 6.5 Bedside Urine Protein - Negative Bedside Urine Urobilinogen - Negative Bedside Urine Nitrite - Negative Bedside Urine Leukocytes - Negative Esterase MDM Narrative Medical decision making narrative: MARIYA CC: Abdominal pain Complicating co-morbidities: Cholecystectomy Data collected from: Patient Medical records reviewed: Previous ED visits Differential considered: Choledocholithiasis ACS Exam documented above, pertinent findings include: They tender in epigastric region negative Rousseau's sign abdomen soft appears well nontoxic Lab Test results independently reviewed as above. Pertinent findings: CBC no leukocytosis no anemia CMP mild hypokalemia potassium 3.3 but appears stable no GEORGE Bilirubin AST ALT all within normal limits Imaging studies independently reviewed: CT from 01/11/2025 abdomen pelvis with contrast shows hepatic steatosis no evidence of uropathy normal appendix Treatments: Patient was offered pain medication but declined Discussion: 69-year-old male with ongoing epigastric pain. It does seem to be very positional he has no chest pain no nausea no vomiting. He is found to have a large hiatal hernia but it does not seem to be causing him problems at this time. Blood work is overall reassuring. He did move and lift something having any which baby causing some worsening pain. Offered pain medication here he declines Toradol did not really help does not really want anything stronger. At this time blood work is stable and overall reassuring. Recommend outpatient follow up and return as needed. Discharge Plan Departure Patient Disposition: Home Clinical Impression: Hernia, hiatal, Abdominal pain Instructions: Hiatal Hernia Activity Restrictions/Additional Instructions: *You have been diagnosed with hiatal hernia abdominal pain *What to do: At this time blood work is overall reassuring. Try heating and ice *Continue to take medications as directed Tylenol 1000 mg every 4-6 hours for [id number] Motrin 600 mg every 6 hours for [id number] Flexeril 5 mg at night as needed for muscle spasm *Follow up with your primary care provider in 2-3 days or call [phone] *Return to ER if you should have increasing pain persistent vomiting chest pain passing any new, worsening or concerning symptoms Prescriptions: New cyclobenzaprine 5 mg tablet 5 mg PO TID PRN (Reason: muscle spasm) Qty: 10 0RF No Action omeprazole 20 MG capsule,delayed release(DR/EC) 20 mg PO QDAY Qty: 30 5RF atenolol 50 mg tablet 50 mg PO DAILY celecoxib [Celebrex] 200 mg capsule 200 mg PO DAILY chlorthalidone 25 mg tablet 25 mg PO DAILY alprazolam [Xanax] 0.25 mg tablet 0.25 mg PO BEDTIME tizanidine 2 mg tablet 2 mg PO Q8H PRN (Reason: muscle spasticity or pain) Qty: 90 0RF meloxicam 15 mg tablet 15 mg PO DAILY Qty: 90 0RF Referrals: Laura Cevallos MD [Primary Care Provider, Internal Medicine] Stand Alone Forms: Patient Portal/API
[2025-01-13 14:38] VITALS: BP 131/72; PULSE 51; RESP 16; O2SAT 99
== END 2025-01-13 14:42 | disposition home or self-care (01) ==
PROVIDERS: Emergency Provider Emergency Medicine; PCP Internal Medicine
DX: K44.9 Diaphragmatic hernia without obstruction or gangrene (principal); R10.13 Epigastric pain
CPT/HCPCS: 36415; 80053; 81003; 83690; 85025; 99283

== ENCOUNTER 2025-04-12 03:13 | Emergency (ER) | payer MEDICARE, SELFPAY ==
[2025-04-12] VITALS (18 sets, daily range): BP systolic 129–164; BP diastolic 63–107; PULSE 42–63; RESP 12–32; O2SAT 92–99; BMI 27.4
[2025-04-12 04:01] LABS: Add Manual Diff / Slide Review NO; Hematocrit 42.5 % (41-53); Hemoglobin 15.3 g/dL (13.5-17.5); Lymphocytes Absolute Auto 1900 /uL (1100-4500); Mean Corpuscular HGB Conc 36.1 % (30-36); Mean Corpuscular Hemoglobin 31.8 PG (26-34); Mean Corpuscular Volume 88.2 fL (80-100); Platelet Count 171 X10^3/uL (150-400)
[2025-04-12 04:12] LABS: Alanine Aminotransferase 21 IU/L (<50); Albumin 4.5 g/dL (3.5-5.0); Albumin Globulin Ratio 1.5 (1.0-2.8); Alkaline Phosphatase 61 U/L (38-126); Blood Urea Nitrogen 27 mg/dL (9-20); Calcium 9.7 mg/dL (8.4-10.2); Carbon Dioxide 26 mmol/L (22-32); Chloride 104 mmol/L (98-107); Estimated Glomerular Filt Rate > 60 mL/min (>60); Globulin 3.1 g/dL (1.7-4.1); Glucose 94 mg/dL (70-99); HEMOLYSIS < 15 (0-50); Lipase 31 U/L (23-300); Potassium 2.8 mmol/L (3.4-5.1); Sodium 140 mmol/L (137-145); Total Protein 7.6 g/dL (6.3-8.2)
--- NOTE | 2025-04-12 04:16 | ED.ABDPAIN ---
HPI - Abdominal Pain <Nancy Canlea DO - Last Filed: 04/12/25 06:28> General Chief Complaint: Abdominal Pain Stated Complaint: Had gallbladder removed, Rt side pain Time Seen by Provider: 04/12/25 03:49 Source: patient Mode of arrival: Ambulatory History of Present Illness HPI narrative: Patient is a 70-year-old male history of cholecystectomy presenting today with ongoing right upper quadrant pain. He has had this pain off and on for a couple of months however over the last 3 days it has gotten much worse. Denies any nausea vomiting or fever. He has taken all his medications at home without any kind of relief. Previously the pain has been in the back but today it is in the front which is different for him. He denies any kind of chest pain. Related Data Home Medications ?Medication ?Instructions ?Recorded ?Confirmed alprazolam 0.25 mg tablet (Xanax) 0.25 mg PO BEDTIME 04/30/24 01/03/25 atenolol 50 mg tablet 50 mg PO DAILY 04/30/24 01/03/25 celecoxib 200 mg capsule (Celebrex) 200 mg PO DAILY 04/30/24 01/03/25 chlorthalidone 25 mg tablet 25 mg PO DAILY 04/30/24 01/03/25 Previous Rx's ?Medication ?Instructions ?Recorded omeprazole 20 mg capsule,delayed 20 mg PO QDAY ##30 02/16/12 release tizanidine 2 mg tablet 2 mg PO Q8H PRN muscle spasticity 06/19/24 or pain #90 tabs cyclobenzaprine 5 mg tablet 5 mg PO TID PRN muscle spasm #10 01/13/25 tabs meloxicam 15 mg tablet 15 mg PO DAILY #90 tabs 04/08/25 hydrocodone 5 mg-acetaminophen 325 1 tab PO Q6H PRN pain #10 tabs 04/12/25 mg tablet Allergies Allergy/AdvReac Type Severity Reaction Status Date / Time lisinopril (LISINOPRIL) Allergy Unknown COUGH Verified 01/13/25 11:58 nabumetone (NABUMETONE) Allergy Unknown RASH Verified 01/13/25 11:58 <Felix West MD - Last Filed: 04/12/25 13:32> History of Present Illness HPI narrative: Patient is a 70-year-old male history of cholecystectomy presenting today with ongoing right upper quadrant pain. He has had this pain off and on for a couple of months however over the last 3 days it has gotten much worse. Denies any nausea, vomiting, or fever. He has taken all his medications at home without any kind of relief. Previously the pain has been in the back but today it is in the front which is different for him. He denies any kind of chest pain. Review of Systems <Felix West MD - Last Filed: 04/12/25 13:32> Review of Systems ROS Unobtainable: All systems reviewed & are unremarkable except as noted in HPI and below Patient History <Nancy Canela DO - Last Filed: 04/12/25 06:28> Medical History Symptomatic cholelithiasis Hypertension Arthritis Hypertension Hiatal hernia Surgical History H/O bilateral inguinal hernia repair Social History household members: spouse Exam <Nancy Canela DO - Last Filed: 04/12/25 06:28> Initial Vital Signs Initial Vital Signs: Vital Signs Pulse Rate 63 04/12/25 03:21 Respiratory Rate 20 04/12/25 03:21 Blood Pressure 148/74 H 04/12/25 03:21 Pulse Oximetry 99 04/12/25 03:21 Oxygen Delivery Method Room Air 04/12/25 03:21 GENERAL: Alert well-appearing 70-year-old male and in no acute distress. HEENT: Head atraumatic,EOMI, pupils reactive, face symmetric, moist mucous membranes CARDIOVASCULAR: Regular rate and rhythm without murmurs, rubs or gallops. RESPIRATORY: Breath sounds equal bilaterally, no wheezes rales or rhonchi. ABDOMEN: Soft, tender right upper quadrant positive Rousseau's sign no guarding no real EXTREMITIES: Normal range of motion, no clubbing or edema. Neurovascularly intact NEUROLOGICAL: Alert and oriented x4.Normal gait and speech. Cranial nerves II through XII grossly intact. SKIN: Warm, dry, no laceration, no petechiae, no rashes or lesions. <Felix West MD - Last Filed: 04/12/25 13:32> Initial Vital Signs Initial Vital Signs: Vital Signs Pulse Rate 63 04/12/25 03:21 Respiratory Rate 20 04/12/25 03:21 Blood Pressure 148/74 H 04/12/25 03:21 Pulse Oximetry 99 04/12/25 03:21 Oxygen Delivery Method Room Air 04/12/25 03:21 Course <Nancy Canela, - Last Filed: 04/12/25 06:28> Orders Ordered: ED Orders 04/12/25 05:03 CT abdomen pelvis w con Stat 04/12/25 08:00 Trop I [Troponin I] Stat Discontinued Medications Hydromorphone HCl (Hydromorphone Hcl 0.5 Mg/0.5 Ml Syringe) 0.5 mg IV NOW ONE Stop: 04/12/25 04:32 Last Admin: 04/12/25 04:43 Dose: 0.5 mg Documented By: CINDY POTASSIUM CHLORIDE IN WATER (Potassium Cl 10 Meq/100 Ml Raisa) 10 meq in 100 mls @ 100 mls/hr IV Q1H CHRISTIANO Stop: 04/12/25 07:14 Last Infusion: 04/12/25 08:15 Dose: Infused Documented By: Admin: 04/12/25 06:44 Dose: 100 mls/hr Documented By: Infusion: 04/12/25 06:10 Dose: Infused Documented By: Admin: 04/12/25 05:10 Dose: 100 mls/hr Documented By: CINDY Morphine Sulfate (Morphine 4 Mg/Ml Inj) 4 mg IV NOW ONE Stop: 04/12/25 11:41 Last Admin: 04/12/25 11:52 Dose: 4 mg Documented By: MARIAM Ondansetron HCl (Ondansetron 4 Mg Odt) 4 mg SL NOW ONE Stop: 04/12/25 06:30 Last Admin: 04/12/25 06:38 Dose: 4 mg Documented By: CINDY Potassium Chloride (Potassium Chloride 20 Meq Tab) 40 meq PO NOW ONE Stop: 04/12/25 05:03 Last Admin: 04/12/25 05:09 Dose: 40 meq Documented By: CINDY Vital Signs Vital signs: Vital Signs - 8 hr 04/12/25 07:33 04/12/25 08:00 04/12/25 08:00 Pulse Rate 42 L 43 L Respiratory Rate 15 21 Blood Pressure 142/63 H 151/68 H Pulse Oximetry 95 96 04/12/25 08:30 04/12/25 08:30 04/12/25 09:00 Pulse Rate 45 L 46 L Respiratory Rate 18 18 Blood Pressure 147/70 H Pulse Oximetry 92 92 04/12/25 09:00 04/12/25 09:30 04/12/25 09:30 Pulse Rate 48 L Respiratory Rate 21 Blood Pressure 164/71 H 156/107 H Pulse Oximetry 94 04/12/25 09:54 04/12/25 09:54 04/12/25 10:00 Pulse Rate 48 L 47 L Respiratory Rate 12 16 Blood Pressure 153/70 H Pulse Oximetry 94 95 04/12/25 10:00 04/12/25 10:30 04/12/25 10:30 Pulse Rate 47 L Respiratory Rate 12 Blood Pressure 137/70 129/67 Pulse Oximetry 95 04/12/25 10:34 04/12/25 10:34 04/12/25 11:00 Pulse Rate 48 L 51 L Respiratory Rate 25 H 29 H Blood Pressure 131/69 Pulse Oximetry 95 93 04/12/25 11:13 04/12/25 11:13 04/12/25 11:30 Pulse Rate 48 L 50 L Respiratory Rate 32 H 25 H Blood Pressure 134/76 Pulse Oximetry 95 04/12/25 11:30 04/12/25 12:00 04/12/25 12:00 Pulse Rate 47 L Respiratory Rate 24 Blood Pressure 142/65 H 136/74 Pulse Oximetry 95 04/12/25 12:30 04/12/25 12:31 04/12/25 12:31 Pulse Rate 44 L 49 L Respiratory Rate 25 H 21 Blood Pressure 145/67 H Pulse Oximetry 96 93 04/12/25 13:00 04/12/25 13:00 Pulse Rate 45 L Respiratory Rate 15 Blood Pressure 133/67 Pulse Oximetry 93 <Felix West MD - Last Filed: 04/12/25 13:32> Orders Ordered: ED Orders 04/12/25 05:03 CT abdomen pelvis w con Stat 04/12/25 08:00 Trop I [Troponin I] Stat Discontinued Medications Hydromorphone HCl (Hydromorphone Hcl 0.5 Mg/0.5 Ml Syringe) 0.5 mg IV NOW ONE Stop: 04/12/25 04:32 Last Admin: 04/12/25 04:43 Dose: 0.5 mg Documented By: CINDY POTASSIUM CHLORIDE IN WATER (Potassium Cl 10 Meq/100 Ml Raisa) 10 meq in 100 mls @ 100 mls/hr IV Q1H [facility] Stop: 04/12/25 07:14 Last Infusion: 04/12/25 08:15 Dose: Infused Documented By: Admin: 04/12/25 06:44 Dose: 100 mls/hr Documented By: Infusion: 04/12/25 06:10 Dose: Infused Documented By: Admin: 04/12/25 05:10 Dose: 100 mls/hr Documented By: CINDY Morphine Sulfate (Morphine 4 Mg/Ml Inj) 4 mg IV NOW ONE Stop: 04/12/25 11:41 Last Admin: 04/12/25 11:52 Dose: 4 mg Documented By: MARIAM Ondansetron HCl (Ondansetron 4 Mg Odt) 4 mg SL NOW ONE Stop: 04/12/25 06:30 Last Admin: 04/12/25 06:38 Dose: 4 mg Documented By: CINDY Potassium Chloride (Potassium Chloride 20 Meq Tab) 40 meq PO NOW ONE Stop: 04/12/25 05:03 Last Admin: 04/12/25 05:09 Dose: 40 meq Documented By: CINDY Vital Signs Vital signs: Vital Signs - 8 hr 04/12/25 07:33 04/12/25 08:00 04/12/25 08:00 Pulse Rate 42 L 43 L Respiratory Rate 15 21 Blood Pressure 142/63 H 151/68 H Pulse Oximetry 95 96 04/12/25 08:30 04/12/25 08:30 04/12/25 09:00 Pulse Rate 45 L 46 L Respiratory Rate 18 18 Blood Pressure 147/70 H Pulse Oximetry 92 92 04/12/25 09:00 04/12/25 09:30 04/12/25 09:30 Pulse Rate 48 L Respiratory Rate 21 Blood Pressure 164/71 H 156/107 H Pulse Oximetry 94 04/12/25 09:54 04/12/25 09:54 04/12/25 10:00 Pulse Rate 48 L 47 L Respiratory Rate 12 16 Blood Pressure 153/70 H Pulse Oximetry 94 95 04/12/25 10:00 04/12/25 10:30 04/12/25 10:30 Pulse Rate 47 L Respiratory Rate 12 Blood Pressure 137/70 129/67 Pulse Oximetry 95 04/12/25 10:34 04/12/25 10:34 04/12/25 11:00 Pulse Rate 48 L 51 L Respiratory Rate 25 H 29 H Blood Pressure 131/69 Pulse Oximetry 95 93 04/12/25 11:13 04/12/25 11:13 04/12/25 11:30 Pulse Rate 48 L 50 L Respiratory Rate 32 H 25 H Blood Pressure 134/76 Pulse Oximetry 95 04/12/25 11:30 04/12/25 12:00 04/12/25 12:00 Pulse Rate 47 L Respiratory Rate 24 Blood Pressure 142/65 H 136/74 Pulse Oximetry 95 04/12/25 12:30 04/12/25 12:31 04/12/25 12:31 Pulse Rate 44 L 49 L Respiratory Rate 25 H 21 Blood Pressure 145/67 H Pulse Oximetry 96 93 04/12/25 13:00 04/12/25 13:00 Pulse Rate 45 L Respiratory Rate 15 Blood Pressure 133/67 Pulse Oximetry 93 MDM - Abdominal Pain <Nancy Canela, - Last Filed: 04/12/25 06:28> Lab Data 04/12/25 03:45 04/12/25 03:45 Labs: Lab Results 04/12/25 04/12/25 Range/Units 03:45 08:00 WBC 5.6 (4.5-11.0) X10^3/uL RBC 4.82 (4.5-5.9) X10^6/uL Hgb 15.3 (13.5-17.5) g/dL Hct 42.5 (41-53) % MCV 88.2 (80-100) fL MCH 31.8 (26-34) PG MCHC 36.1 H (30-36) % RDW 13.7 (11.6-14.8) % Plt Count 171 (150-400) X10^3/uL Neut % (Auto) 50.1 (50-75) % Lymph % (Auto) 34.6 (25-40) % Tate % (Auto) 7.2 (3-14) % Eos % (Auto) 7.0 H (2-4) % Baso % (Auto) 1.1 (0-2) % Neut # (Auto) 2800 (9003-2242) /uL Lymph # (Auto) 1900 (4384-0917) /uL Tate # (Auto) 400 (0-900) /uL Eos # (Auto) 400 (0-450) /uL Baso # (Auto) 100 (0-100) /uL Nucleated RBCs Cancelled Hypersegmented Neuts Cancelled Hypogranular Neuts Cancelled Reactive Lymphocytes Cancelled Smudge Cells Cancelled Other Cell Type Cancelled Toxic Granulation Cancelled Toxic Vacuolation Cancelled Dohle Bodies Cancelled Gregg Rods Cancelled WBC Morphology Comment Cancelled Platelet Estimate Cancelled Clumped Platelets Cancelled Plt Morphology Comment Cancelled RBC Morphology Cancelled Dimorphic RBCs Cancelled Polychromasia Cancelled Hypochromasia Cancelled Poikilocytosis Cancelled Basophilic Stippling Cancelled Anisocytosis Cancelled Microcytosis Cancelled Macrocytosis Cancelled Spherocytes Cancelled Pappenheimer Bodies Cancelled Sickle Cells Cancelled Target Cells Cancelled Tear Drop Cells Cancelled Ovalocytes Cancelled Stomatocytes Cancelled Helmet Cells Cancelled [place] Bodies Cancelled [place] Rings Cancelled Nu Cells Cancelled Acanthocytes (Spur) Cancelled Rouleaux Cancelled Schistocytes Cancelled Sodium 140 (137-145) mmol/L Potassium 2.8 L (3.4-5.1) mmol/L Chloride 104 (98-107) mmol/L Carbon Dioxide 26 (22-32) mmol/L BUN 27 H (9-20) mg/dL Creatinine 0.79 (0.66-1.25) mg/dL Estimated GFR > 60 (>60) mL/min BUN/Creatinine Ratio 34.2 H (6-22) Glucose 94 (70-99) mg/dL Calcium 9.7 (8.4-10.2) mg/dL Total Bilirubin 1.0 (0.2-1.3) mg/dL AST 27 (17-59) IU/L ALT 21 (<50) IU/L Alkaline Phosphatase 61 (38-126) U/L Troponin I < 0.012 (0.01-0.034) ng/mL Total Protein 7.6 (6.3-8.2) g/dL Albumin 4.5 (3.5-5.0) g/dL Globulin 3.1 (1.7-4.1) g/dL Albumin/Globulin Ratio 1.5 (1.0-2.8) Lipase 31 (23-300) U/L Ur Bilirubin Confirm Negative (Negative) Urine RBC 0-1/hpf (0-5/HPF) Urine WBC 0-1/hpf (0-5/HPF) Ur Squamous Epith Cells 1-5 /hpf (0-5/HPF) Urine Bacteria None seen (None) Hyaline Casts 1-5/lpf (None) Vol Urine Centrifuged 10ml (spun) Point of care testing: Urine Dip Bedside Urine Glucose Negative Bedside Urine Bilirubin + 1 Bedside Urine Ketone - Negative Urine Specific [place] 1.015 Bedside Urine Occult Blood - Negative Bedside Urine pH 6.5 Bedside Urine Protein +/- 15 Bedside Urine Urobilinogen +/- 1mg Bedside Urine Nitrite - Negative Bedside Urine Leukocytes - Negative Esterase MDM Narrative Medical decision making narrative: Patient is 70-year-old male history of cholecystectomy presenting today with ongoing right upper quadrant pain. He had a cholecystectomy done in June 2024. Since then he has had continued pain. Today pain is slightly different causes anterior rather than posterior he does have positive Rousseau's sign. Blood work has been reviewed CBC No leukocytosis no anemia CMP does show mild hypokalemia with potassium of 2.8 no GEORGE Bilirubin liver enzymes lipase within normal limits. CT abdomen no acute abnormality nodule noted on process Patient given 20 mEq of IV potassium 40 p.o., along with Dilaudid for pain. <Felix West MD - Last Filed: 04/12/25 13:32> Lab Data Labs: Lab Results 04/12/25 04/12/25 Range/Units 03:45 08:00 WBC 5.6 (4.5-11.0) X10^3/uL RBC 4.82 (4.5-5.9) X10^6/uL Hgb 15.3 (13.5-17.5) g/dL Hct 42.5 (41-53) % MCV 88.2 (80-100) fL MCH 31.8 (26-34) PG MCHC 36.1 H (30-36) % RDW 13.7 (11.6-14.8) % Plt Count 171 (150-400) X10^3/uL Neut % (Auto) 50.1 (50-75) % Lymph % (Auto) 34.6 (25-40) % Tate % (Auto) 7.2 (3-14) % Eos % (Auto) 7.0 H (2-4) % Baso % (Auto) 1.1 (0-2) % Neut # (Auto) 2800 (4833-6932) /uL Lymph # (Auto) 1900 (7368-9512) /uL Tate # (Auto) 400 (0-900) /uL Eos # (Auto) 400 (0-450) /uL Baso # (Auto) 100 (0-100) /uL Nucleated RBCs Cancelled Hypersegmented Neuts Cancelled Hypogranular Neuts Cancelled Reactive Lymphocytes Cancelled Smudge Cells Cancelled Other Cell Type Cancelled Toxic Granulation Cancelled Toxic Vacuolation Cancelled Dohle Bodies Cancelled Gregg Rods Cancelled WBC Morphology Comment Cancelled Platelet Estimate Cancelled Clumped Platelets Cancelled Plt Morphology Comment Cancelled RBC Morphology Cancelled Dimorphic RBCs Cancelled Polychromasia Cancelled Hypochromasia Cancelled Poikilocytosis Cancelled Basophilic Stippling Cancelled Anisocytosis Cancelled Microcytosis Cancelled Macrocytosis Cancelled Spherocytes Cancelled Pappenheimer Bodies Cancelled Sickle Cells Cancelled Target Cells Cancelled Tear Drop Cells Cancelled Ovalocytes Cancelled Stomatocytes Cancelled Helmet Cells Cancelled [place] Bodies Cancelled [place] Rings Cancelled Nu Cells Cancelled Acanthocytes (Spur) Cancelled Rouleaux Cancelled Schistocytes Cancelled Sodium 140 (137-145) mmol/L Potassium 2.8 L (3.4-5.1) mmol/L Chloride 104 (98-107) mmol/L Carbon Dioxide 26 (22-32) mmol/L BUN 27 H (9-20) mg/dL Creatinine 0.79 (0.66-1.25) mg/dL Estimated GFR > 60 (>60) mL/min BUN/Creatinine Ratio 34.2 H (6-22) Glucose 94 (70-99) mg/dL Calcium 9.7 (8.4-10.2) mg/dL Total Bilirubin 1.0 (0.2-1.3) mg/dL AST 27 (17-59) IU/L ALT 21 (<50) IU/L Alkaline Phosphatase 61 (38-126) U/L Troponin I < 0.012 (0.01-0.034) ng/mL Total Protein 7.6 (6.3-8.2) g/dL Albumin 4.5 (3.5-5.0) g/dL Globulin 3.1 (1.7-4.1) g/dL Albumin/Globulin Ratio 1.5 (1.0-2.8) Lipase 31 (23-300) U/L Ur Bilirubin Confirm Negative (Negative) Urine RBC 0-1/hpf (0-5/HPF) Urine WBC 0-1/hpf (0-5/HPF) Ur Squamous Epith Cells 1-5 /hpf (0-5/HPF) Urine Bacteria None seen (None) Hyaline Casts 1-5/lpf (None) Vol Urine Centrifuged 10ml (spun) Point of care testing: Urine Dip Bedside Urine Glucose Negative Bedside Urine Bilirubin + 1 Bedside Urine Ketone - Negative Urine Specific [place] 1.015 Bedside Urine Occult Blood - Negative Bedside Urine pH 6.5 Bedside Urine Protein +/- 15 Bedside Urine Urobilinogen +/- 1mg Bedside Urine Nitrite - Negative Bedside Urine Leukocytes - Negative Esterase MDM Narrative Medical decision making narrative: Patient is 70-year-old male history of cholecystectomy presenting today with ongoing right upper quadrant pain. He had a cholecystectomy done in June 2024. Since then he has had continued pain. Today pain is slightly different causes anterior rather than posterior he does have positive Rousseau's sign. Blood work has been reviewed CBC No leukocytosis no anemia CMP does show mild hypokalemia with potassium of 2.8 no GEORGE Bilirubin liver enzymes lipase within normal limits. CT abdomen no acute abnormality nodule noted on process Patient given 20 mEq of IV potassium 40 p.o., along with Dilaudid for pain. Patient with unremarkable CT scan, still having persistent right upper quadrant pain controlled with morphine, patient states he initially had a twinge of chest pain however he states that it was likely due to the fact that he is too bad shoulders and the way he had to move his arms to fit in the CT scanner. The patient's workup is unremarkable including imaging. Patient is stable for home discharge with rapid follow-up with PMD. Discharge Plan Departure Patient Disposition: Home Clinical Impression: Acute hypokalemia, Abdominal pain Instructions: DI for Abdominal Pain-Adult Activity Restrictions/Additional Instructions: *You have been diagnosed with abdominal pain *What to do: At this time I do recommend he follow up with General surgery in regards to your ongoing right upper quadrant pain. You were found to have a prostate nodule which can be followed up with your primary care as well. You may need to have your potassium rechecked with your primary care doctor next week *Continue to take medications as directed [place] 1 tablet every 4-6 hours if needed for severe pain *Follow up with your primary care provider in 2-3 days or call [phone] *Return to ER if you should have increasing pain nausea vomiting or any new, worsening or concerning symptoms CONTROLLED SUBSTANCE DISCHARGE (Narcotoic/benzodiazepine/Flexeril/Phenergan) 1. You have been prescribed narcotic medications, it does have acetaminophen/Tylenol/paracetamol in it, DO NOT TAKE MORE THAN 4,00mg in 24 hours of Tylenol. TRAMADOL DOES NOT CONTAIN TYLENOL 2. Please understand that we cannot provide further refills of narcotics, benzodiazepines or controlled substances through the ED and her pain management will need to be through your provider. 3. While on these medications you cannot drive or operate heavy machinery. 4. You cannot sign legal documents or perform any duties such as this. 5. As long as you're taking opiate pain medications he should also be taking a stool softener such as Colace, Dulcolax, MiraLAX or prune juice, to help avoid constipation. Prescriptions: New hydrocodone-acetaminophen 5-325 mg tablet 1 tab PO Q6H PRN (Reason: pain) Qty: 10 0RF No Action omeprazole 20 MG capsule,delayed release(DR/EC) 20 mg PO QDAY Qty: 30 5RF meloxicam 15 mg tablet 15 mg PO DAILY Qty: 90 0RF atenolol 50 mg tablet 50 mg PO DAILY celecoxib [Celebrex] 200 mg capsule 200 mg PO DAILY chlorthalidone 25 mg tablet 25 mg PO DAILY alprazolam [Xanax] 0.25 mg tablet 0.25 mg PO BEDTIME tizanidine 2 mg tablet 2 mg PO Q8H PRN (Reason: muscle spasticity or pain) Qty: 90 0RF cyclobenzaprine 5 mg tablet 5 mg PO TID PRN (Reason: muscle spasm) Qty: 10 0RF Referrals: Laura Cevallos MD [Primary Care Provider, Internal Medicine] Stand Alone Forms: Patient Portal/API
[2025-04-12 04:54] LABS: Ictotest Urine Negative (Negative)
--- NOTE | 2025-04-12 05:03 | DI.CT.S_ITS ---
PROCEDURE: CT ABDOMEN PELVIS W CON INDICATIONS: ongoing right upper quad pain TECHNIQUE: After the administration of intravenous contrast, axial sections acquired from the lung bases to the pubic symphysis. Coronal and sagittal reformats were performed. For radiation dose reduction, the following was used: automated exposure control, adjustment of mA and/or kV according to patient size. COMPARISON: [facility], CT, CT ABDOMEN PELVIS W CON, 01/11/2025, 18:19. FINDINGS: Quality: Diagnostic. Lower Chest: Large hiatal hernia. Severe coronary calcification. Abdomen: Liver: Unchanged segment 6 cyst.3. Gallbladder and bile ducts: Cholecystectomy. No biliary duct dilation.3. Pancreas: Unremarkable. Spleen: Scattered calcified granulomas. Normal size.. Adrenal Glands: Unremarkable. Kidneys and Ureters: Simple renal cyst in the midpole right kidney, unchanged. No follow-up is recommended. No hydronephrosis. Punctate renal calculus in the midpole the left kidney.. Stomach: Unremarkable. Bowel: No abnormal dilation. No wall thickening. Normal appendix. Diverticulosis. Peritoneum: No free fluid. No free air. Pelvis: Reproductive: Prostatomegaly with internal nodular enhancement in the peripheral zone at the 4 o'clock position measuring 1.3 cm (axial image 154). Bladder: Unremarkable. Other: Lymphatic: No adenopathy. Vasculature: No aortic aneurysm. Abdominal wall: Subcentimeter umbilical hernia containing fat.. Bones: No aggressive osseous lesion. Mild degenerative change of the spine. IMPRESSION: No acute abnormality. Indeterminate enhancing lesion in the prostate. Further workup for malignancy recommended. Consider urology referral or prostate MRI. Dictated by: Grupo Johnson M.D. on 04/12/2025 at 8:17 Approved by: Grupo Johnson M.D. on 04/12/2025 at 8:25
[2025-04-12] MEDS: POTASSIUM CHLORIDE 20 MEQ TAB 40 MEQ PO (05:09)
[2025-04-12] MEDS: POTASSIUM CHLORIDE IN WATER 10 MEQ/100 ML PIGGYBACK 100 MEQ IV ×2 (05:10→06:44)
[2025-04-12] MEDS: ONDANSETRON 4 MG ODT SL (06:38)
[2025-04-12 08:47] LABS: Troponin I < 0.012 ng/mL (0.01-0.034)
--- NOTE | 2025-04-12 11:40 | PC.NURSE ---
This RN informed provider of patient RUQ pain 12/16 and provider gave this RN verbal 4mg morphine IV once now. This RN placed verbal order.
[2025-04-12] MEDS: MORPHINE 4 MG/ML INJ IV (11:52)
== END 2025-04-12 13:45 | disposition home or self-care (01) ==
PROVIDERS: Emergency Medicine; Emergency Provider Emergency Medicine; PCP Internal Medicine
DX: E87.6 Hypokalemia (principal); R10.11 Right upper quadrant pain; Z90.49 Acquired absence of other specified parts of digestive tract; R07.9 Chest pain, unspecified
CPT/HCPCS: 36415; 74177; 80053; 81003; 81015; 83690; 84484; 85025; 87086; 96365; 96366; 96375; 99284; J1171; J2272; Q9967

== ENCOUNTER → 2025-04-23 08:42 | Outpatient (CLI) | payer MEDICARE, SELFPAY ==
--- NOTE | 2025-04-23 08:43 | DI.MRI.S_ITS ---
PROCEDURE: MR ABDOMEN PELVIS WO CON COMPARISON: None. INDICATIONS: RUQ pain r/o retained common duct stone Technique: Multiphasic, multi sequence MRI of the abdomen was performed, without contrast. FINDINGS: Moderate hiatal hernia. Liver is borderline enlarged, measuring 19.6 centimeters. Benign hepatic cysts are present. No intrahepatic or extrahepatic biliary dilation. Gallbladder is absent. Common bile duct as a smooth tapering, without stones. The duct measures 5 millimeters. Normal spleen. No adrenal nodules. Benign right renal cyst measuring 3.5 centimeter; Bosniak 1 requiring no further follow-up. Multiple T2 hyperintense cystic lesions scattered throughout the pancreatic parenchyma, largest measuring 9 millimeters in the tail (series 1017, image 8). Not all connect to the pancreatic duct. No ductal dilation. No suspicious features. Colonic diverticulosis without evidence of diverticulitis. The prostate is enlarged, measuring 4.1 x 5.9 x 3.7 centimeter. There are a couple of regions hypointensity in the peripheral zone, which may indicate malignancy. Largest region measures 1.5 x 0.9 centimeter (series 15, image 16). Small inguinal hernias containing fat. IMPRESSION: Cholelithiasis. No evidence of choledocholithiasis. Multiple T2 hyperintense cystic lesions measuring less than 1 centimeter throughout the pancreatic parenchyma. No suspicious features. These probably represent side branch IPMN. Two year follow-up with MRCP is recommended for follow-up, per consensus guidelines. Prostatomegaly. Hypointense region within the peripheral zone may indicate early malignancy, measuring 1.5 x 0.9 centimeter. Recommend dedicated prostate MRI for complete characterization. Dictated by: Rizwan Acosta M.D. on 04/23/2025 at 12:16 Approved by: Rizwan Acosta M.D. on 04/23/2025 at 12:25
[2025-04-23 11:16] LABS: Amylase 39 U/L (30-110); HEMOLYSIS < 15 (0-50); Magnesium 1.8 mg/dL (1.6-2.3); Potassium 3.7 mmol/L (3.4-5.1)
[2025-04-23 11:34] LABS: Vitamin D 25 Hydroxy (D3) 36.1 ng/mL (30.0-100.0)
== END ==
PROVIDERS: PCP Internal Medicine; Referring Provider Internal Medicine; Visit Provider Surgery
DX: Z13.228 Encounter for screening for other metabolic disorders (principal); K86.2 Cyst of pancreas; N40.0 Benign prostatic hyperplasia without lower urinary tract symptoms; R10.9 Unspecified abdominal pain; K76.89 Other specified diseases of liver; N28.1 Cyst of kidney, acquired; K57.90 Diverticulosis of intestine, part unspecified, without perforation or abscess without bleeding; K40.90 Unilateral inguinal hernia, without obstruction or gangrene, not specified as recurrent; Z90.49 Acquired absence of other specified parts of digestive tract
CPT/HCPCS: 36415; 72195; 74181; 82150; 82306; 83735; 84132